=== PATIENT | male | born 1955 | race Caucasian/White ===

== ENCOUNTER 2016-11-12 09:13 | Day surgery (SDC) | payer BC ==
[~2016-11-12 09:13] MED LIST: Lactated Ringers 1,000 ML IV SCH; Sodium Chloride 0.9% 10 ML Syringe FLUSH PRN
[2016-11-12] MEDS ORDERED: Midazolam 1 MG/ML 2 ML SDV ONE ×2 (11:04→11:09)
[2016-11-12] MEDS ORDERED: fentaNYL 100 MCG/2 ML SDV ONE ×2 (11:04→11:09)
[2016-11-12] MEDS ORDERED: Propofol 200 MG/20 ML SDV ONE ×2 (11:04→11:09)
[2016-11-12 13:21] VITALS: BP 123/81
--- NOTE | 2016-11-12 14:57 | OR ---
Date of Procedure: 11/12/2016 PREOPERATIVE DIAGNOSES: 1. History of Clifton esophagus. 2. History of colon polyps. POSTOPERATIVE DIAGNOSES: 1. Normal EGD. 2. Normal colonoscopy. PROCEDURES: 1. EGD with biopsy. 2. Colonoscopy. ANESTHESIA: IV sedation. DESCRIPTION OF PROCEDURE: The patient was brought to the procedure room, where he was placed on his left side and IV sedation administered. Digital rectal exam was performed, which was normal. Colonoscope was inserted and advanced to the level of the cecum without difficulty. Cecal position was confirmed by identifying the appendiceal lumen and ileocecal valve. Prep was good and surfaces were well visualized. Upon withdrawing the scope, the ascending, transverse, and descending colon were normal in appearance. Sigmoid colon and rectum were normal. Retroflexion was normal. Air was removed and the scope withdrawn. The patient tolerated this portion of the procedure well. Next, upper endoscopy was performed after oral bite block was placed. Upper endoscope was then inserted and vocal cords viewed and were normal. Scope was advanced to the 3rd portion of the duodenum. The duodenum and pylorus were normal. Antrum and body of the stomach were normal. Retroflexion reveals a normal appearing fundus. Squamocolumnar junction appears normal. I do not see any evidence of Clifton esophagus; because of his history, I did 3 random biopsies from the distal esophagus. Air was removed from the stomach and the scope withdrawn through the remaining esophagus, which appears normal. The patient tolerated the procedure well and returned to recovery in stable condition. I will have him follow up with Reg[facility] Beard next week for review of pathology report. Assuming no concerns are present on the biopsies. He should undergo upper endoscopy and colonoscopy again in 5 years. MARCE MANCILLA MD /[id number]
== END 2016-11-12 12:50 | disposition home or self-care (01) ==
LOC: LL.SDS 09:13
PROVIDERS: ATTEND Surgery
DX: Z12.11 Encounter for screening for malignant neoplasm of colon (principal); Z86.010 Personal history of colon polyps; Z79.899 Other long term (current) drug therapy
CPT/HCPCS: 43239; 45378; J2250; J2704; J3010; J7120

== ENCOUNTER 2020-11-07 15:29 | Emergency (ER) | payer BC, MEDICARE ==
[2020-11-07] MEDS ORDERED: Bupivacaine 0.5% 10 ML SDV INJECT ONE (15:45)
--- NOTE | 2020-11-07 15:48 | EDM.PDOC ---
ED HPI GENERAL MEDICAL PROBLEM - General Chief Complaint: Laceration Stated Complaint: LACERATION Time Seen by Provider: 11/07/20 15:40 Source of Information: Reports: Patient History Limitations: Reports: No Limitations - History of Present Illness INITIAL COMMENTS - FREE TEXT/NARRATIVE: Patient comes emergency department today from home with complaints of a laceration to the pad of his left thumb. Just prior to arrival the patient was at home when he was working with a table saw when he accidentally got the pad of his left thumb and the distal phalange E lacerated on the sawblade. There is no other injury to the hand. He denies any paresthesias to his left thumb. No other injury to his hand other than to his thumb. His last tetanus immunization was in 2016. - Related Data Allergies Allergy/AdvReac Type Severity Reaction Status Date / Time No Known Allergies Allergy Verified 11/07/20 15:31 Home Meds: Home Meds cephALEXin [Cephalexin] 500 mg PO QID #20 tablet 11/07/20 [Rx] Past Medical History - Past Health History Medical/Surgical History: Denies Medical/Surgical History Neurological History: Reports: Other (See Below) Other Neuro History: Postherapetoc neuralgia - Infectious Disease History Infectious Disease History: Reports: Chicken Pox, Measles, Mumps, Rubella, Shingles Social & Family History - Family History Family Medical History: No Pertinent Family History ED ROS GENERAL - Review of Systems Review Of Systems: Comprehensive ROS is negative, except as noted in HPI. ED EXAM, SKIN/RASH Exam: See Below Exam Limited By: No Limitations General Appearance: Alert, WD/WN, No Apparent Distress Respiratory/Chest: No Respiratory Distress, Lungs Clear, Normal Breath Sounds, No Accessory Muscle Use, Chest Non-Tender Cardiovascular: Normal Peripheral Pulses, Regular Rate, Rhythm Peripheral Pulses: 2+: Radial (L), Radial (R) Extremities: No: Normal Inspection (on the distal phalange of the left thumb there is a subcutansous laceration in a U shape like fillet type laceration. Able to flex and extend at the IP and MCP joint. CMS intact. Rest of the hand is unremarkable. ) Neurological: Alert, Oriented, CN II-XII Intact Psychiatric: Normal Affect, Normal Mood Skin: Warm, Dry, Intact, Normal Color, No Rash Course - Vital Signs Last Recorded V/S: Last Vital Signs Temp 97 F 11/07/20 16:30 Pulse 85 11/07/20 16:30 Resp 16 11/07/20 16:30 BP 145/71 H 11/07/20 16:30 Pulse Ox 98 11/07/20 16:30 - Orders/Labs/Meds Orders: Active Orders 24 hr Category Date Time Status Fingers Thumb Lt FA [CR] Stat Exams 11/07/20 15:45 Taken Meds: Medications Discontinued Medications Generic Name Dose Route Start Last Admin Trade Name Kaur PRN Reason Stop Dose Admin Bupivacaine HCl 10 ml 11/07/20 15:45 Bupivacaine 0.5% 10 Ml Sdv INJECT 11/07/20 15:46 ONETIME ONE Cephalexin 500 mg 11/07/20 16:44 11/07/20 17:02 Cephalexin 250 Mg Cap PO 11/07/20 16:45 500 mg ONETIME ONE Administration Lidocaine HCl 5 ml 11/07/20 15:45 Lidocaine 1% 5 Ml Sdv INJECT 11/07/20 15:46 ONETIME ONE - Radiology Interpretation Free Text/Narrative:: X-ray of the thumb per radiology shows a laceration in the volar aspect of the thumb. There is an associated small defect in the volar cortex of the base of the distal phalanx of the thumb with tiny adjacent osseous fragments compatible with very small chip fractures. No complete fracture seen within the distal phalanx. 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 - Re-Assessments/Exams Free Text/Narrative Re-Assessment/Exam: Risk and benefits were explained to the patient wanted digital block for this rather extensive laceration on the pad surface of his left distal phalange of his thumb. Verbal consent was obtained. The base of the thumb in the medial and lateral aspect was cleansed with Betadine and allowed to dry the appropriate time period. 1% lidocaine without epinephrine and 0.5% bupivacaine without epinephrine was mixed in a 50-50 fashion. I injected 2 mils of the above solution on the medial and lateral aspect of the left thumb with excellent anesthesia obtained. I then turned my attention to irrigating out the thumb because the x-ray is concerning for a celia or a chip type fracture to the base of the distal phalange E. I peeled back a fillet type laceration that extends all the way down into the subcutaneous tissue. There is no foreign material or debris. I was not able to identify the distal phalange E in the soft tissue. He is able to flex and extend at the MCP and the IP joint. I irrigated this deep laceration with approximately 1 L of sterile water with chlorhexidine solution. The laceration in total is like a U-shaped laceration with the dimensions of 1.5 cm x 2.5 cm x 1 cm. Neurovascularly this was intact prior to the procedure. Then through the use of 4-0 Vicryl I approximated the subcutaneous tissue as well as possible. I placed 3 single interrupted sutures. Then in a single interrupted fashion i closed the macerated irregular shaped deep laceration of the thumb with 4-0 ethilon sutures. It was difficult to approximate this patients tissue as it appears some has been avulsed and removed. I was able to get the skin quite close together but not perfect by any means. CMS intact after the repair. Due to the deep nature of this injury and to the thumb he was placed on cephalexin and will have him follow up with hand surgery to follow this deep injury. Discharge instructions as below were explained to the patient. He was comfortable with this plan and his questions answered. Due to the injury of the base of the distal phalange a single finger splint was applied as well to be worn until he sees hand surgury. Departure - Departure Time of Disposition: 16:45 Disposition: Home, Self-Care 01 Clinical Impression: Laceration of thumb, left, complicated Qualifiers: Encounter type: initial encounter Qualified Code(s): S61.012A - Laceration without foreign body of left thumb without damage to nail, initial encounter Fracture of thumb, left, open Qualifiers: Encounter type: initial encounter Phalanx: distal Fracture alignment: nondisplaced Qualified Code(s): S62.525B - Nondisplaced fracture of distal phalanx of left thumb, initial encounter for open fracture - Discharge Information Prescriptions: cephALEXin [Cephalexin] 500 mg PO QID #20 tablet Instructions: Laceration Care, Adult, [id number], Pain Medicine Instructions, [id number] Referrals: Ivanna Justice NP [Primary Care Provider] - Forms: ED Department Discharge Additional Instructions: Cleanse the wound twice daily with soap and water. Bacitracin and bandage until healed. Cephalexin 1 tablet 4 times a day for the next 5 days. First dose given in the ED and RX sent to [facility]. Watch for signs of infection. Sutures out in 10 days. Return to the ED if new or worsening symptoms. Contact [facility] in the morning and make appointment with [facility] consider Dr. Patricio. [phone] for follow up. Sepsis Event Note (ED) - Focused Exam Vital Signs: Vital Signs Temp Pulse Resp BP Pulse Ox 11/07/20 16:30 97 F 85 16 145/71 H 98 - My Orders Last 24 Hours: My Active Orders 11/07/20 15:45 Fingers Thumb Lt FA [CR] Stat - Assessment/Plan Last 24 Hours: My Active Orders 11/07/20 15:45 Fingers Thumb Lt FA [CR] Stat
[2020-11-07] MEDS: Cephalexin 250 MG Cap PO ONE (17:02)
[2020-11-07 19:37] VITALS: BP 145/71; PULSE 85
== END 2020-11-07 17:15 | disposition home or self-care (01) ==
LOC: LL.ED 15:29
DX: S62.525B Nondisplaced fracture of distal phalanx of left thumb, initial encounter for open fracture (principal); W27.0XXA Contact with workbench tool, initial encounter; Y92.009 Unspecified place in unspecified non-institutional (private) residence as the place of occurrence of the external cause; Y99.0 Civilian activity done for income or pay
CPT/HCPCS: 12002; 12042; 73140-FA; 99283; 99283-25; A9270-GY